=== PATIENT | male | born 1960 | race Caucasian/White ===

== ENCOUNTER → 2024-08-08 10:07 | Outpatient (REF) | payer MEDICARE, OTHER, SELFPAY | LOC: RAD 10:07 | PROVIDERS: ATTENDING PHYSICIAN Student in an Organized Health Care Education/Training Program; FAMILY PHYSICIAN Family Medicine | DX: M11.9 Crystal arthropathy, unspecified (principal); M10.9 Gout, unspecified; M25.541 Pain in joints of right hand; M25.531 Pain in right wrist; M25.532 Pain in left wrist; M25.542 Pain in joints of left hand | CPT/HCPCS: 73130; 76882 ==